=== PATIENT | female | born 1955 | race Asian ===

== ENCOUNTER 2019-06-05 20:40 | Emergency (ER) | payer OTHER ==
[~2019-06-05] VITALS: Ht 152.4 cm; Wt 56.7 kg
[2019-06-05] MEDS ORDERED: ACETAMINOPHEN ES 500 MG TABLET ONE (21:15)
[2019-06-05 21:19] VITALS: BP 124/75
[2019-06-05] MEDS ORDERED: ACETAMINOPHEN 325 MG TABLET PO ONE (21:30)
== END 2019-06-05 22:22 | disposition home or self-care (01) ==
LOC: ER 20:42
DX: S80.01XA Contusion of right knee, initial encounter (principal); R07.89 Other chest pain; I10 Essential (primary) hypertension; E11.9 Type 2 diabetes mellitus without complications; V49.49XA Driver injured in collision with other motor vehicles in traffic accident, initial encounter; Y93.89 Activity, other specified; Y92.411 Interstate highway as the place of occurrence of the external cause; Y99.8 Other external cause status
CPT/HCPCS: 73560-TC; 73590-TC